=== PATIENT | male | born 1985 | race African-American/Black ===

== ENCOUNTER 2018-02-02 21:46 | Inpatient (IN) | payer SELFPAY ==
[2018-02-02] MEDS: IV NORMAL SALINE 1000ML BAG 1,000 ML IV (22:07)
[2018-02-02] MEDS: ACETAMINOPHEN 325 MG TABLET. PO (22:08)
[2018-02-02] MEDS: ASPIRIN CHEWABLE 81 MG TABLET. PO (22:08)
[2018-02-02 22:20] LABS: PROTHROMBIN TIME PATIENT 12.6 SEC (11.7-14.0)
[2018-02-02 22:21] LABS: PARTIAL THROMBOPLASTIN TIME 34 SEC (24-38)
[2018-02-02 22:26] LABS: D-DIMER 2.72 ug/mlFEU (0.00-0.50)
[2018-02-02 23:00] LABS: BASO % 0 % (0-3); EOS % 0 % (0-3); HEMATOCRIT 38.7 % (39.0-53.0); HEMOGLOBIN 12.6 g/dL (13.0-17.5); LYMPH # 0.8 x10^3/uL (1.0-4.8); LYMPH % 3 % (24-48); MEAN CORPUSCULAR HEMOGLOBIN 28 pg (25-35); MEAN CORPUSCULAR HGB CONC 33 g/dL (31-37); MEAN CORPUSCULAR VOLUME 87 fL (79-100); MONO # 1.4 x10^3/uL (0.0-1.1); MONO % 5 % (0-9); NEUT # 24.3 x10^3uL (1.8-7.7); NEUT % 92 % (31-73); PLATELET COUNT 307 x10^3/uL (140-400); RED BLOOD COUNT 4.45 x10^6/uL (4.30-5.70); RED CELL DISTRIBUTION WIDTH 13.5 % (11.5-14.5); WHITE BLOOD COUNT 26.5 x10^3/uL (4.0-11.0)
[2018-02-02 23:04] LABS: ADD MAN DIFF? YES
[2018-02-02 23:13] LABS: ANION GAP 10 (6-14); BLOOD UREA NITROGEN 14 mg/dL (8-26); BUN/CREATININE RATIO 8 (6-20); CALCIUM 8.9 mg/dL (8.5-10.1); CARBON DIOXIDE 24 mmol/L (21-32); CHLORIDE 105 mmol/L (98-107); CREATININE 1.7 mg/dL (0.7-1.3); GFR 56.1; GLUCOSE 113 mg/dL (70-99); POTASSIUM 4.4 mmol/L (3.5-5.1); SODIUM 139 mmol/L (136-145)
[2018-02-02 23:18] LABS: ALBUMIN 2.2 g/dL (3.4-5.0); ALBUMIN/GLOBULIN RATIO 0.5 (1.0-1.7); ALK PHOS 72 U/L (46-116); ALT (SGPT) 18 U/L (16-63); AST (SGOT) 20 U/L (15-37); LIPASE 62 U/L (73-393); MAGNESIUM 1.1 mg/dL (1.8-2.4); TOTAL BILIRUBIN 0.6 mg/dL (0.2-1.0)
[2018-02-02 23:20] LABS: LACTIC ACID 1.3 mmol/L (0.4-2.0)
[2018-02-02 23:21] LABS: TROPONINI < 0.017 ng/mL (0.000-0.055)
[2018-02-02 23:33] LABS: NT-PRO BNP 2370 pg/mL (0-124)
[2018-02-02 23:34] LABS: CKMB MASS < 0.5 ng/mL (0.0-3.6); CREATINE KINASE 104 U/L (39-308)
[2018-02-02 23:46] LABS: % BANDS 13 % (0-9); % LYMPHS 2 % (24-48); % MONOS 9 % (0-10); % SEGS 76 % (35-66); PLT ESTIMATE ADEQUATE (ADEQUATE)
[2018-02-02] MEDS: PIPERACILLIN/TAZOBACTAM 4.5 GM in IV NORMAL SALINE 100ML 100 ML IV (23:48)
[2018-02-03] MEDS: VANCOMYCIN 2 GM in IV NORMAL SALINE 500ML BAG 500 ML IV (00:21)
[2018-02-03] MEDS: fentaNYL PF VIAL 100 MCG/2 ML VIAL IV ×5 (01:02→20:28)
[2018-02-03] MEDS: VANCOMYCIN PER PHARMACY MC (01:38)
[2018-02-03] MEDS: IV NORMAL SALINE 1000ML BAG 1,000 ML IV ×3 (02:30→20:02)
[2018-02-03] MEDS: ACETAMINOPHEN 325 MG TABLET. PO (08:21)
[2018-02-03] MEDS ORDERED: PIP/TAZO PER PHARMACY MC (09:45)
[2018-02-03] MEDS ORDERED: NICOTINE 21MG PATCH. TD (10:00)
[2018-02-03] MEDS: AZITHROMYCIN 250 MG TABLET. PO (11:39)
[2018-02-03] MEDS: ENOXAPARIN 40 MG/0.4 ML SYRINGE. SQ (11:40)
[2018-02-03] MEDS: oxyCODONE/APAP 5/325 1 TAB TABLET PO ×2 (11:40→17:33)
[2018-02-03] MEDS: MAGNESIUM SULFATE 4GM 100 ML IV (11:41)
[2018-02-03] MEDS ORDERED: VANCOMYCIN 1.25 GM in IV NORMAL SALINE 250ML 250 ML IV (12:00)
[2018-02-03] MEDS: cefTRIAXone IV Push 1 GM VIAL. IVP (15:17)
[2018-02-04] MEDS: fentaNYL PF VIAL 100 MCG/2 ML VIAL IV ×6 (00:34→21:36)
[2018-02-04] MEDS: AZITHROMYCIN 250 MG TABLET. PO (07:56)
[2018-02-04] MEDS: oxyCODONE/APAP 5/325 1 TAB TABLET PO ×3 (07:57→19:55)
[2018-02-04 09:42] LABS: ADD MAN DIFF? NO
[2018-02-04 09:45] LABS: BASO # 0.1 x10^3/uL (0.0-0.2); BASO % 1 % (0-3); EOS # 0.1 x10^3/uL (0.0-0.7); EOS % 1 % (0-3); HEMATOCRIT 31.2 % (39.0-53.0); LYMPH # 1.5 x10^3/uL (1.0-4.8); LYMPH % 13 % (24-48); MEAN CORPUSCULAR HEMOGLOBIN 28 pg (25-35); MEAN CORPUSCULAR HGB CONC 32 g/dL (31-37); MEAN CORPUSCULAR VOLUME 89 fL (79-100); MONO # 0.6 x10^3/uL (0.0-1.1); MONO % 5 % (0-9); NEUT # 9.7 x10^3uL (1.8-7.7); NEUT % 81 % (31-73); PLATELET COUNT 250 x10^3/uL (140-400); RED BLOOD COUNT 3.52 x10^6/uL (4.30-5.70); RED CELL DISTRIBUTION WIDTH 13.6 % (11.5-14.5)
[2018-02-04 10:20] LABS: ALBUMIN 1.6 g/dL (3.4-5.0); ALBUMIN/GLOBULIN RATIO 0.4 (1.0-1.7); ALK PHOS 58 U/L (46-116); ALT (SGPT) 13 U/L (16-63); ANION GAP 5 (6-14); AST (SGOT) 17 U/L (15-37); BLOOD UREA NITROGEN 19 mg/dL (8-26); BUN/CREATININE RATIO 12 (6-20); CALCIUM 8.3 mg/dL (8.5-10.1); CARBON DIOXIDE 24 mmol/L (21-32); CHLORIDE 106 mmol/L (98-107); CREATININE 1.6 mg/dL (0.7-1.3); GFR 60.2; GLUCOSE 173 mg/dL (70-99); SODIUM 135 mmol/L (136-145); TOTAL BILIRUBIN 0.2 mg/dL (0.2-1.0); TOTAL PROTEIN 5.8 g/dL (6.4-8.2)
[2018-02-04] MEDS: oxyCODONE IR 5 MG TABLET PO (11:44)
[2018-02-04] MEDS: cefTRIAXone IV Push 1 GM VIAL. IVP (11:44)
[2018-02-04] MEDS: LACTOBACILLUS RHAMNOSUS GG 1 CAPSULE. PO (19:55)
[2018-02-04 20:33] LABS: POC GLUCOSE 119 mg/dL (70-99)
[2018-02-05] MEDS: oxyCODONE/APAP 5/325 1 TAB TABLET PO (05:03)
[2018-02-05] MEDS: fentaNYL PF VIAL 100 MCG/2 ML VIAL IV ×2 (06:01→09:43)
[2018-02-05] MEDS: LACTOBACILLUS RHAMNOSUS GG 1 CAPSULE. PO (09:41)
[2018-02-05] MEDS: AZITHROMYCIN 250 MG TABLET. PO (09:41)
[2018-02-05] MEDS: ENOXAPARIN 40 MG/0.4 ML SYRINGE. SQ (09:42)
[2018-02-05] MEDS: ONDANSETRON PF 4 MG/2 ML VIAL. IV (11:45)
[2018-02-05] MEDS ORDERED: guaiFENesin DM 200MG/20MG 10 ML SYRUP PO (11:45)
[2018-02-05] MEDS: cefTRIAXone IV Push 1 GM VIAL. IVP (11:46)
== END 2018-02-05 13:37 | disposition home or self-care (01) | DRG 871 ==
LOC: 6 SOUTH 23:55 → ER 21:46
DX: A41.9 Sepsis, unspecified organism (principal); J18.9 Pneumonia, unspecified organism; E43 Unspecified severe protein-calorie malnutrition; R04.2 Hemoptysis; E83.42 Hypomagnesemia; F17.210 Nicotine dependence, cigarettes, uncomplicated; N18.3 Chronic kidney disease, stage 3 (moderate); Z90.5 Acquired absence of kidney; Z68.21 Body mass index [BMI] 21.0-21.9, adult; Z79.899 Other long term (current) drug therapy; Z88.5 Allergy status to narcotic agent
CPT/HCPCS: 36415; 71046; 71250; 78582; 80053; 82553; 82962; 83605; 83690; 83735; 83880; 84484; 85007; 85025; 85379; 85610; 85730; 87040; 93005; 93970; 96361; 96365; 96366; 96367; 96374; 99285; 99285-25; 99406; A9540; A9558; J0696; J1650; J2405; J2543; J3010; J3370; J3475; J7030; J7040; Q0144